=== PATIENT | male | born 1955 | race Caucasian/White ===

== ENCOUNTER 2017-07-18 19:08 | Emergency (ER) | payer MEDICAID ==
[~2017-07-18 19:08] MED LIST changes: -POTA20TA85 PO
--- NOTE | 2017-07-18 19:27 | ER Report ---
History and Physical Time Seen By MD: 19:17 Hx. of Stated Complaint: EMS WAS CALLED FOR PT THAT WAS PASSED OUT. PT DOES NOT REMEMBER EVENT. PT STATES HE FEELS FINE RIGHT NOW. HPI/ROS CHIEF COMPLAINT: Passed out at local restaurant. HISTORY OF PRESENT ILLNESS: This is a 62 year old male. He had a syncopal episode at the local [employer] restaurant. He does not remember passing out or even going to the restaurant. He vaguely remembers ordering some food. The last he really remembers was sitting at home watching TV. He denies any headache. He has some mild blurred vision. He denies any weakness or numbness in the face or arms or legs. He has not had trouble speaking or swallowing. He denies chest pain or palpitations. He has no cough or shortness of breath. No signs of recent illness such as runny nose, sore throat. No fevers or chills. No nausea or vomiting. Normal bowels and urination. No history of stroke. No history of arrhythmias, but does have a history of SD a few years ago. He has been eating and drinking normally today. Allergies: Coded Allergies: No Known Drug Allergies (Unverified , 07/18/17) Home Meds Active Scripts Potassium Chloride (KLOR-CON M20) 20 Meq Tab.er.prt, 20 MEQ PO QDAY, #30 TAB 0 Refills Prov:JOSE PORTILLO MD 07/18/17 Discontinued Reported Medications Aspirin (ASPIRIN) 81 Mg Tab.chew, 81 MG PO QDAY, TAB.CHEW TAKE 1 TABLET BY MOUTH EVERY DAY 03/27/13 Reviewed Nurses Notes: Yes Hx Smoking: Yes Hx Substance Use Disorder: No Hx Alcohol Use: No Constitutional Vital Sign - Last 24 Hours 07/18/17 07/18/17 07/18/17 07/18/17 19:10 19:30 19:35 19:38 Temp 97.8 Pulse 63 73 Resp 16 9 B/P (MAP) 140/72 (94) 118/79 (92) Pulse Ox 96 94 O2 Delivery Room Air 07/18/17 07/18/17 07/18/17 07/18/17 19:40 19:45 20:08 20:09 Pulse 76 72 72 Resp 15 16 18 B/P (MAP) 131/65 (87) 140/72 (94) 118/79 (92) Pulse Ox 98 96 O2 Delivery Room Air Room Air 07/18/17 07/18/17 07/18/17 07/18/17 20:10 20:45 21:00 21:15 Pulse 75 72 77 70 Resp 18 15 8 9 B/P (MAP) 131/65 (87) Pulse Ox 97 91 90 95 O2 Delivery Room Air 07/18/17 07/18/17 07/18/17 07/18/17 21:30 21:45 21:55 22:05 Pulse 73 75 72 73 Resp 17 17 14 8 Pulse Ox 94 92 92 96 07/18/17 22:15 Pulse 73 Resp 16 Pulse Ox 96 Intake and Output 07/18/17 07/18/17 07/19/17 15:00 23:00 07:00 Intake Total 2000 ml Balance 2000 ml Physical Exam General Appearance: The patient is alert. No acute distress. Eyes: Pupils are equal, round. No pallor, injection or icterus. ENT: Mucous membranes are dry, otherwise normal oral mucosa. Posterior oropharynx is normal. Normal nasal mucosa. Normal tympanic membranes and canals. Neck: Supple and non tender. No lymphadenopathy. Respiratory: Breathing easily and unlabored. Lungs are clear to auscultation. Cardiovascular: Regular rate and rhythm. No murmurs, gallops or rubs. Normal capillary refill. No edema. Gastrointestinal: Abdomen is soft and non tender. Nondistended. Normal active bowel sounds. Neurological: Alert and oriented x3. Cranial nerves II through XII show no acute deficits on my exam. No focal neurologic deficits in the extremities. Skin: Warm and dry. No rashes. Musculoskeletal: Extremities are nontender. Full range of motion. No tenderness in palpation of the cervical, thoracic and lumbar spine. DIFFERENTIAL DIAGNOSIS: After history and physical exam, differential diagnosis was considered for syncope including but not limited to vasovagal syncope, arrhythmia, dehydration, and blood loss. Medical Decision Making Data Points Result Diagram: 07/18/170 07/18/171899 Laboratory Hematology Test 07/18/17 19:00 07/18/17 19:59 Red Blood Count 5.07 M/uL (4.00-5.60) Mean Corpuscular Volume 92.2 fL (80.0-96.0) Mean Corpuscular Hemoglobin 33.0 pg (26.0-33.0) Mean Corpuscular Hemoglobin Concent 35.8 g/dL (32.0-36.0) Red Cell Distribution Width 12.9 % (11.5-14.5) Mean Platelet Volume 9.6 fL (7.2-11.1) Neutrophils (%) (Auto) 64.1 % (39.4-72.5) Lymphocytes (%) (Auto) 27.2 % (17.6-49.6) Monocytes (%) (Auto) 5.3 % (4.1-12.4) Eosinophils (%) (Auto) 1.6 % (0.4-6.7) Basophils (%) (Auto) 1.8 % (0.3-1.4) Nucleated RBC Relative Count (auto) 0.0 /100WBC Neutrophils # (Auto) 10.1 K/uL (2.0-7.4) Lymphocytes # (Auto) 4.3 K/uL (1.3-3.6) Monocytes # (Auto) 0.8 K/uL (0.3-1.0) Eosinophils # (Auto) 0.3 K/uL (0.0-0.5) Basophils # (Auto) 0.3 K/uL (0.0-0.1) Nucleated RBC Absolute Count (auto) 0.00 K/uL Peripheral Blood Smear Yes Y/N Erythrocyte Sedimentation Rate 9 mm/HOUR (0-20) Sodium Level 139 mmol/L (137-145) Potassium Level 2.9 mmol/L (3.5-5.0) Chloride Level 94 mmol/L (98-107) Carbon Dioxide Level 31 mmol/L (22-30) Blood Urea Nitrogen 20 mg/dl (9-21) Creatinine 1.30 mg/dl (0.66-1.25) Glomerular Filtration Rate Calc 55.8 Random Glucose 118 mg/dl (75-110) Lactate 1.6 mmol/L (0.7-2.1) Calcium Level 9.4 mg/dl (8.4-10.2) Total Bilirubin 0.4 mg/dl (0.2-1.3) Aspartate Amino Transf (AST/SGOT) 27 U/L (0-35) Alanine Aminotransferase (ALT/SGPT) 32 U/L (0-56) Alkaline Phosphatase 80 U/L (0-126) Troponin I < 0.012 ng/ml B-Type Natriuretic Peptide 36 pg/ml (0-100) Total Protein 7.7 gm/dl (6.3-8.2) Albumin 4.2 g/dl (3.5-5.0) Urine Color Yellow Urine Clarity Clear Urine pH 5.0 pH (4.8-9.5) Urine Specific [place] 1.018 Urine Protein Negative mg/dL (NEGATIVE) Urine Glucose (UA) Negative mg/dL (NEGATIVE) Urine Ketones Negative mg/dL (NEGATIVE) Urine Blood Small (NEGATIVE) Urine Nitrite Negative (NEGATIVE) Urine Bilirubin Negative (NEGATIVE) Urine Urobilinogen Negative mg/dL (0.2-1.9) Urine Leukocyte Esterase Negative (NEGATIVE) Urine RBC <1 /HPF (0-2/HPF) Urine WBC <1 /HPF (0-5/HPF) Urine Squamous Epithelial Cells None /LPF (</=FEW) Urine Bacteria Negative /HPF (NONE-FEW) Urine Hyaline Casts Moderate /LPF (NONE-FEW) Urine Mucus Few /HPF (NONE-FEW) Chemistry Test 07/18/17 19:00 07/18/17 19:59 White Blood Count 15.8 k/uL (4.5-11.0) Red Blood Count 5.07 M/uL (4.00-5.60) Hemoglobin 16.7 g/dL (14.0-18.0) Hematocrit 46.8 % (42.0-52.0) Mean Corpuscular Volume 92.2 fL (80.0-96.0) Mean Corpuscular Hemoglobin 33.0 pg (26.0-33.0) Mean Corpuscular Hemoglobin Concent 35.8 g/dL (32.0-36.0) Red Cell Distribution Width 12.9 % (11.5-14.5) Platelet Count 316 K/uL (150-450) Mean Platelet Volume 9.6 fL (7.2-11.1) Neutrophils (%) (Auto) 64.1 % (39.4-72.5) Lymphocytes (%) (Auto) 27.2 % (17.6-49.6) Monocytes (%) (Auto) 5.3 % (4.1-12.4) Eosinophils (%) (Auto) 1.6 % (0.4-6.7) Basophils (%) (Auto) 1.8 % (0.3-1.4) Nucleated RBC Relative Count (auto) 0.0 /100WBC Neutrophils # (Auto) 10.1 K/uL (2.0-7.4) Lymphocytes # (Auto) 4.3 K/uL (1.3-3.6) Monocytes # (Auto) 0.8 K/uL (0.3-1.0) Eosinophils # (Auto) 0.3 K/uL (0.0-0.5) Basophils # (Auto) 0.3 K/uL (0.0-0.1) Nucleated RBC Absolute Count (auto) 0.00 K/uL Peripheral Blood Smear Yes Y/N Erythrocyte Sedimentation Rate 9 mm/HOUR (0-20) Glomerular Filtration Rate Calc 55.8 Lactate 1.6 mmol/L (0.7-2.1) Calcium Level 9.4 mg/dl (8.4-10.2) Total Bilirubin 0.4 mg/dl (0.2-1.3) Aspartate Amino Transf (AST/SGOT) 27 U/L (0-35) Alanine Aminotransferase (ALT/SGPT) 32 U/L (0-56) Alkaline Phosphatase 80 U/L (0-126) Troponin I < 0.012 ng/ml B-Type Natriuretic Peptide 36 pg/ml (0-100) Total Protein 7.7 gm/dl (6.3-8.2) Albumin 4.2 g/dl (3.5-5.0) Urine Color Yellow Urine Clarity Clear Urine pH 5.0 pH (4.8-9.5) Urine Specific [place] 1.018 Urine Protein Negative mg/dL (NEGATIVE) Urine Glucose (UA) Negative mg/dL (NEGATIVE) Urine Ketones Negative mg/dL (NEGATIVE) Urine Blood Small (NEGATIVE) Urine Nitrite Negative (NEGATIVE) Urine Bilirubin Negative (NEGATIVE) Urine Urobilinogen Negative mg/dL (0.2-1.9) Urine Leukocyte Esterase Negative (NEGATIVE) Urine RBC <1 /HPF (0-2/HPF) Urine WBC <1 /HPF (0-5/HPF) Urine Squamous Epithelial Cells None /LPF (</=FEW) Urine Bacteria Negative /HPF (NONE-FEW) Urine Hyaline Casts Moderate /LPF (NONE-FEW) Urine Mucus Few /HPF (NONE-FEW) Urinalysis Test 07/18/17 19:59 Urine Color Yellow Urine Clarity Clear Urine pH 5.0 pH (4.8-9.5) Urine Specific [place] 1.018 Urine Protein Negative mg/dL (NEGATIVE) Urine Glucose (UA) Negative mg/dL (NEGATIVE) Urine Ketones Negative mg/dL (NEGATIVE) Urine Blood Small (NEGATIVE) Urine Nitrite Negative (NEGATIVE) Urine Bilirubin Negative (NEGATIVE) Urine Urobilinogen Negative mg/dL (0.2-1.9) Urine Leukocyte Esterase Negative (NEGATIVE) Urine RBC <1 /HPF (0-2/HPF) Urine WBC <1 /HPF (0-5/HPF) Urine Squamous Epithelial Cells None /LPF (</=FEW) Urine Bacteria Negative /HPF (NONE-FEW) Urine Hyaline Casts Moderate /LPF (NONE-FEW) Urine Mucus Few /HPF (NONE-FEW) EKG/Imaging EKG Interpretation 12 lead EKG: Rhythm: normal sinus rhythm, rate 73 [place]: normal QRS: normal ST segments: Nonspecific T changes, no ST elevation or depression Imaging EXAMINATION: CT head without IV contrast HISTORY: Syncope. TECHNIQUE: Axial CT images of the head were obtained from the vertex to the skull base without IV contrast, with coronal and sagittal 2D reconstructed images. One of the following dose optimization techniques was utilized in the performance of this exam: Automated exposure control; adjustment of the mA and/ or kV according to the patient's size; or use of an iterative reconstruction technique. Specific details can be referenced in the facility's radiology CT exam operational policy. COMPARISON: None. FINDINGS: Mild generalized parenchymal atrophy, with mild patchy low attenuation in the deep white matter, suggesting chronic small vessel ischemic change. There are small chronic appearing lacunar infarcts in the basal ganglia bilaterally. Intracranial vascular calcifications. No CT evidence of intracranial hemorrhage, mass lesion, or acute infarct. No midline shift or extra-axial fluid collections. Degroot-white differentiation is maintained. The calvarium is intact. The partially visualized paranasal sinuses and mastoid air cells are unopacified. IMPRESSION: 1. No CT evidence of acute intracranial pathology. 2. Mild parenchymal atrophy with chronic small vessel ischemic change. Small chronic-appearing lacunar infarcts along the basal ganglia. Report Dictated By: Arcadio Larios MD at 07/18/2017 8:27 PM EXAMINATION: CT cervical spine without IV contrast HISTORY: Syncope. TECHNIQUE: Thin axial CT images of the cervical spine were obtained without IV contrast, with sagittal and coronal 2D reconstructed images. One of the following dose optimization techniques was utilized in the performance of this exam: Automated exposure control; adjustment of the mA and/ or kV according to the patient's size; or use of an iterative reconstruction technique. Specific details can be referenced in the facility's radiology CT exam operational policy. COMPARISON: None. FINDINGS: The cervical spine is negative for acute fracture or subluxation. Normal alignment. Vertebral body height is maintained. Chronic degenerative changes in the cervical spine. Disc spaces are relatively well preserved, with mild degenerative endplate changes at the C3-C4 through C5- C6 interspaces. There is mild right foraminal narrowing at C3-C4 and mild bilateral foraminal narrowing at C4-C5 related to uncovertebral spurring. Posterior elements are intact, with normal alignment along the cervical facet joints. The dens is intact. Normal alignment along the craniocervical junction. IMPRESSION: 1. No acute osseous findings along the cervical spine. Normal alignment. 2. Mild chronic degenerative changes along the cervical spine. Report Dictated By: Arcadio Larios MD at 07/18/2017 8:32 PM Examination: CHEST SINGLE AP Comparison: None. History: Syncope. Findings: No consolidation, nodule, or peribronchial inflammation. No pneumothorax, edema, or effusion. Cardiac and hilar contour size is within normal limits. Osseous structures are intact. IMPRESSION: No findings of acute cardiopulmonary disease. Report Dictated By: Angelo Morgan MD at 07/18/2017 8:23 PM ED Course/Re-evaluation Clinical Indication for ER IV: Hydration, IV Access ED Course Orthostatic vital signs were done and showed a drop in blood pressure with sitting, but then back to the same as laying when he stands up. He received a liter of normal saline and feels better. He tells me he never drinks enough water. I discussed his low potassium level and the second liter of normal saline and the IV and oral potassium replacement. Reviewed the findings on CT and chest x-ray as noted above. Feeling better and will follow-up with primary care this week. Discussed that he likely has a concussion from the fall and discussed treatment of concussion. Decision to Disposition Date: Jul 18, 2017 Decision to Disposition Time: 22:11 Depart Departure Latest Vital Signs Vital Signs Date Time Temp Pulse Resp B/P (MAP) Pulse Ox O2 Delivery O2 Flow Rate FiO2 07/18/17 22:15 73 16 96 07/18/17 20:10 131/65 (87) Room Air 07/18/17 19:10 97.8 Impression: Primary Impression: Syncope Additional Impressions: Hypokalemia Concussion Condition: Improved Disposition: HOME OR SELF-CARE New Scripts Potassium Chloride (KLOR-CON M20) 20 Meq Tab.er.prt 20 MEQ PO QDAY, #30 TAB 0 Refills Prov: JOSE PORTILLO MD 07/18/17 Patient Instructions: Concussion (ED), Hypokalemia (ED), Syncope (ED) Additional Instructions: Increase fluid intake. start a potassium supplement, Klor-Con 20mEq tablets once a day Follow-up with primary care for repeat labs and re-evaluation. Concussion symptoms include: headache, nausea/vomiting, dizziness, difficulty concentrating, blurred vision. These symptoms can be mild or moderate. If symptoms become severe, follow-up evaluation is needed. Avoid any heavy physical activity and avoid any activities that may cause repeat head injury. Concussion symptoms can last for days or weeks. There is no way to predict how long these will last. It is okay to sleep after a head injury. Return to the ER for any altered mental status changes or confusion, or if one pupil is larger than the other, or if there are other abnormal or severe changes. Use Tylenol or Ibuprofen as needed for pain. Do not take any medicines containing aspirin for several days. Problem Qualifiers Primary Impression: Syncope Syncope type: unspecified Qualified Codes: R55 - Syncope and collapse Additional Impressions: Concussion Encounter type: initial encounter Loss of consciousness presence/duration: with LOC of 30 min or less Qualified Codes: S06.0X1A - Concussion with loss of consciousness of 30 minutes or less, initial encounter JOSE PORTILLO MD Jul 18, 2017 19:27
[2017-07-18] MEDS ORDERED: NS(*) 0.9% 1000 ML BAG 1,000 ML IV ONE ×2 (19:30→20:50)
[2017-07-18 19:41] LABS: PLATELET COUNT, AUTOMATED 316 K/uL (150-450)
[2017-07-18] MEDS ORDERED: EMS NS 0.9%(*) 1000 ML BAG 1,000 ML IV ONE (20:00)
--- NOTE | 2017-07-18 20:04 | EKG ---
FACILITY: [facility] - [place] PATIENT NAME: IVY MURILLO : [id number] MR: [id number] V: [id number] EXAM DATE: ORDERING PHYSICIAN: JOSE PORTILLO TECHNOLOGIST: TOD Test Reason : NEURO Blood Pressure : / mmHG Vent. Rate : 073 BPM Atrial Rate : 073 BPM P-R Int : 156 ms QRS Dur : 096 ms QT Int : 414 ms P-R-T Axes : 024 043 064 degrees QTc Int : 456 ms Sinus rhythm Nonspecific T wave findings Artifact present in multiple leads - repeat if needed Abnormal ECG Confirmed by XOCHITL PORTER ([id number] on 07/19/2017 6:40:16 AM Referred By: Confirmed By:XOCHITL PORTER
[2017-07-18 20:10] VITALS: BP 131/65
[2017-07-18] MEDS ORDERED: POTASSIUM CHL 20 MEQ TABCR PO ONE (20:15)
[2017-07-18] MEDS ORDERED: KCL (*) 20 MEQ/100 ML PREMIX 100 ML IV ONE (20:15)
--- NOTE | 2017-07-18 20:28 | RADIOLOGY IMAGING REPORT ---
FACILITY: [facility] - [place] PATIENT NAME: Yaya Ku : 1955 MR: [id number] V: [id number] EXAM DATE: ORDERING PHYSICIAN: JOSE PORTILLO TECHNOLOGIST: Location: [facility] Patient: Yaya Ku : 1955 Visit/Account:[id number] Date of Sevice: 07/18/2017 Examination: CHEST SINGLE AP Comparison: None. History: Syncope. Findings: No consolidation, nodule, or peribronchial inflammation. No pneumothorax, edema, or effusio n. Cardiac and hilar contour size is within normal limits. Osseous structures are intact. IMPRESSION: No findings of acute cardiopulmonary disease. Report Dictated By: Angelo Morgan MD at 07/18/2017 8:23 PM Report E-Signed By: Angelo Morgan MD at 07/18/2017 8:24 PM WSN:[id number]
--- NOTE | 2017-07-18 20:36 | RADIOLOGY IMAGING REPORT ---
FACILITY: [facility] - [place] PATIENT NAME: Yaya Ku : 1955 MR: [id number] V: [id number] EXAM DATE: ORDERING PHYSICIAN: JOSE PORTILLO TECHNOLOGIST: Location: [facility] [place] Patient: Yaya Ku : 1955 Visit/Account:[id number] Date of Sevice: 07/18/2017 EXAMINATION: CT head without IV contrast HISTORY: Syncope. TECHNIQUE: Axial CT images of the head were obtained from the vertex to the skull base without IV c ontrast, with coronal and sagittal 2D reconstructed images. One of the following dose optimization techniques was utilized in the performance of this exam: Autom ated exposure control; adjustment of the mA and/or kV according to the patient's size; or use of an i terative reconstruction technique. Specific details can be referenced in the facility's radiology C T exam operational policy. COMPARISON: None. FINDINGS: Mild generalized parenchymal atrophy, with mild patchy low attenuation in the deep white matter, sugg esting chronic small vessel ischemic change. There are small chronic appearing lacunar infarcts in th e basal ganglia bilaterally. Intracranial vascular calcifications. No CT evidence of intracranial hemorrhage, mass lesion, or acute infarct. No midline shift or extra-a xial fluid collections. Degroot-white differentiation is maintained. The calvarium is intact. The partially visualized paranasal sinuses and mastoid air cells are unopaci fied. IMPRESSION: 1. No CT evidence of acute intracranial pathology. 2. Mild parenchymal atrophy with chronic small vessel ischemic change. Small chronic-appearing lacuna r infarcts along the basal ganglia. Report Dictated By: Arcadio Larios MD at 07/18/2017 8:27 PM Report E-Signed By: Arcadio Larios MD at 07/18/2017 8:32 PM WSN:[id number]
--- NOTE | 2017-07-18 20:40 | RADIOLOGY IMAGING REPORT ---
FACILITY: [facility] - [place] PATIENT NAME: Yaya Ku : 1955 MR: [id number] V: [id number] EXAM DATE: ORDERING PHYSICIAN: JOSE PORTILLO TECHNOLOGIST: Location: [facility] - [place] Patient: Yaya Ku : 1955 Visit/Account:[id number] Date of Sevice: 07/18/2017 EXAMINATION: CT cervical spine without IV contrast HISTORY: Syncope. TECHNIQUE: Thin axial CT images of the cervical spine were obtained without IV contrast, with sagit chandrika and coronal 2D reconstructed images. One of the following dose optimization techniques was utilized in the performance of this exam: Autom ated exposure control; adjustment of the mA and/or kV according to the patient's size; or use of an i terative reconstruction technique. Specific details can be referenced in the facility's radiology C T exam operational policy. COMPARISON: None. FINDINGS: The cervical spine is negative for acute fracture or subluxation. Normal alignment. Vertebral body he ight is maintained. Chronic degenerative changes in the cervical spine. Disc spaces are relatively well preserved, with m ild degenerative endplate changes at the C3-C4 through C5-C6 interspaces. There is mild right foramin al narrowing at C3-C4 and mild bilateral foraminal narrowing at C4-C5 related to uncovertebral spurri ng. Posterior elements are intact, with normal alignment along the cervical facet joints. The dens is intact. Normal alignment along the craniocervical junction. IMPRESSION: 1. No acute osseous findings along the cervical spine. Normal alignment. 2. Mild chronic degenerative changes along the cervical spine. Report Dictated By: Arcadio Larios MD at 07/18/2017 8:32 PM Report E-Signed By: Arcadio Larios MD at 07/18/2017 8:37 PM WSN:[id number]
[2017-07-18] MEDS ORDERED: POTA20TA85 PO (22:13)
== END 2017-07-18 22:42 | disposition home or self-care (01) ==
LOC: ER 19:19
DX: S06.0X1A Concussion with loss of consciousness of 30 minutes or less, initial encounter (principal); E87.6 Hypokalemia; R94.31 Abnormal electrocardiogram [ECG] [EKG]
CPT/HCPCS: 36415; 70450; 71045; 72125; 81001; 83605; 83880; 84484; 85025; 85651; 93005; 96361; 96365; 99284; J3480; J7030; 36416; 82040; 82247; 82310; 82374; 82435; 82565; 82947; 82948; 84075; 84132; 84155; 84295; 84450; 84460; 84520

== ENCOUNTER → 2017-07-18 | Outpatient (CLI) | payer MEDICAID ==
[~2017-07-18] MED LIST: ASPI81TA94 PO; POTA20TA85 PO
== END ==
LOC: AMB 18:36
PROVIDERS: ATTEND Nurse Practitioner

== ENCOUNTER 2018-08-11 09:35 | Emergency (ER) | payer MEDICAID ==
[~2018-08-11 09:35] MED LIST changes: +POTA20TA85 PO
[2018-08-11] MEDS ORDERED: LISI-374 PO (09:50)
[2018-08-11] MEDS ORDERED: ASPI-1471 PO (09:50)
[2018-08-11] MEDS ORDERED: SPIR25TA80 PO (09:50)
[2018-08-11] MEDS ORDERED: METO50TA19 PO (09:50)
--- NOTE | 2018-08-11 09:57 | ER Report ---
History and Physical Time Seen By MD: 09:50 Hx. of Stated Complaint: patient reports bilateral calf pain that started around 2 weeks ago HPI/ROS CHIEF COMPLAINT: Calf pain HISTORY OF PRESENT ILLNESS: This a 63 male comes emergency Department today with complaint of calf pain bilaterally the last 2 weeks episodic comes and goes worse with ambulation better with rest however today he has 0 pain he says it feels significantly better he was on a statin for his cholesterol but is subsequently discontinued about a week or so ago. Patient denies any falls or trauma patient does have a cardiac history consisting of an CO back in 2012. Patient is still smoker. Patient has no additional complaints this time. Patient denies any Swelling or current tenderness. REVIEW OF SYSTEMS: Respiratory: No cough, no dyspnea. Cardiovascular: No chest pain, no palpitations. Gastrointestinal: No vomiting, no abdominal pain. Musculoskeletal: No back pain. Remainder of the 14 system rev: Yes Allergies: Coded Allergies: No Known Drug Allergies (Unverified , 07/18/17) Home Meds Reported Medications Spironolactone (SPIRONOLACTONE) 25 Mg Tablet, 50 MG PO QDAY, TAB 08/11/18 Metoprolol Succinate (METOPROLOL SUCCINATE) 50 Mg Tab.er.24h, 4 TAB PO QDAY, TAB 08/11/18 Aspirin (ASPIR 81) 81 Mg Tablet.dr, 81 MG PO QDAY, TAB 08/11/18 Lisinopril (LISINOPRIL) 40 Mg Tablet, 40 MG PO QDAY, TAB 08/11/18 Discontinued Scripts Potassium Chloride (KLOR-CON M20) 20 Meq Tab.er.prt, 20 MEQ PO QDAY, #30 TAB 0 Refills Prov:JOSE PORTILLO MD 07/18/17 Reviewed Nurses Notes: Yes Old Medical Records Reviewed: Yes Hx Smoking: Yes Hx Substance Use Disorder: No Hx Alcohol Use: No Constitutional Vital Sign - Last 24 Hours 08/11/18 08/11/18 08/11/18 09:40 09:40 10:59 Temp 98.0 Pulse 82 Resp 20 B/P (MAP) 107/73 (84) 107/73 119/62 (81) Pulse Ox 92 O2 Delivery Room Air Physical Exam General Appearance: The patient is alert, has no immediate need for airway protection and no current signs of toxicity. [ ] Eyes: Pupils equal and round no injection. Respiratory: Chest is non tender, lungs are clear to auscultation. Cardiac: regular rate and rhythm [ ] Gastrointestinal: Abdomen is soft and non tender, no masses, bowel sounds normal. Musculoskeletal: Lower extremity examination bilaterally shows negative Homans negative Arias negative drawer signs patient has normal pulses DP and PT bilaterally 2+ patient has neurovascularly intact full range of motion no pain with ambulation or calf raise Neck is supple and non tender. Extremities have full range of motion and are non tender. Skin: No rashes or lesions. [ ] DIFFERENTIAL DIAGNOSIS: After history and physical exam differential diagnosis was considered for myositis, DVT Medical Decision Making Data Points Result Diagram: 08/11/18 0954 08/11/18 0954 Laboratory Hematology Test 08/11/18 09:54 Red Blood Count 4.87 M/uL (4.00-5.60) Mean Corpuscular Volume 94.7 fL (80.0-96.0) Mean Corpuscular Hemoglobin 33.2 pg (26.0-33.0) Mean Corpuscular Hemoglobin Concent 35.1 g/dL (32.0-36.0) Red Cell Distribution Width 13.6 % (11.5-14.5) Mean Platelet Volume 8.2 fL (7.2-11.1) Neutrophils (%) (Auto) 71.9 % (39.4-72.5) Lymphocytes (%) (Auto) 16.9 % (17.6-49.6) Monocytes (%) (Auto) 7.2 % (4.1-12.4) Eosinophils (%) (Auto) 1.6 % (0.4-6.7) Basophils (%) (Auto) 2.4 % (0.3-1.4) Nucleated RBC Relative Count (auto) 0.0 /100WBC Neutrophils # (Auto) 8.6 K/uL (2.0-7.4) Lymphocytes # (Auto) 2.0 K/uL (1.3-3.6) Monocytes # (Auto) 0.9 K/uL (0.3-1.0) Eosinophils # (Auto) 0.2 K/uL (0.0-0.5) Basophils # (Auto) 0.3 K/uL (0.0-0.1) Nucleated RBC Absolute Count (auto) 0.00 K/uL D-Dimer Quantitative (PE/DVT) 0.53 ug/ml (0-0.50) Sodium Level 135 mmol/L (137-145) Potassium Level 4.9 mmol/L (3.5-5.0) Chloride Level 97 mmol/L (98-107) Carbon Dioxide Level 28 mmol/L (22-30) Blood Urea Nitrogen 29 mg/dl (9-21) Creatinine 1.80 mg/dl (0.66-1.25) Glomerular Filtration Rate Calc 38.2 Random Glucose 107 mg/dl (75-110) Calcium Level 9.8 mg/dl (8.4-10.2) Total Bilirubin 0.4 mg/dl (0.2-1.3) Aspartate Amino Transf (AST/SGOT) 23 U/L (0-35) Alanine Aminotransferase (ALT/SGPT) 18 U/L (0-56) Alkaline Phosphatase 75 U/L (0-126) Total Creatine Kinase 42 U/L (55-170) Troponin I < 0.012 ng/ml C-Reactive Protein < 0.5 mg/dl (<1.0) Total Protein 8.2 g/dl (6.3-8.2) Albumin 4.6 g/dl (3.5-5.0) Chemistry Test 08/11/18 09:54 White Blood Count 12.0 k/uL (4.5-11.0) Red Blood Count 4.87 M/uL (4.00-5.60) Hemoglobin 16.2 g/dL (14.0-18.0) Hematocrit 46.1 % (42.0-52.0) Mean Corpuscular Volume 94.7 fL (80.0-96.0) Mean Corpuscular Hemoglobin 33.2 pg (26.0-33.0) Mean Corpuscular Hemoglobin Concent 35.1 g/dL (32.0-36.0) Red Cell Distribution Width 13.6 % (11.5-14.5) Platelet Count 323 K/uL (150-450) Mean Platelet Volume 8.2 fL (7.2-11.1) Neutrophils (%) (Auto) 71.9 % (39.4-72.5) Lymphocytes (%) (Auto) 16.9 % (17.6-49.6) Monocytes (%) (Auto) 7.2 % (4.1-12.4) Eosinophils (%) (Auto) 1.6 % (0.4-6.7) Basophils (%) (Auto) 2.4 % (0.3-1.4) Nucleated RBC Relative Count (auto) 0.0 /100WBC Neutrophils # (Auto) 8.6 K/uL (2.0-7.4) Lymphocytes # (Auto) 2.0 K/uL (1.3-3.6) Monocytes # (Auto) 0.9 K/uL (0.3-1.0) Eosinophils # (Auto) 0.2 K/uL (0.0-0.5) Basophils # (Auto) 0.3 K/uL (0.0-0.1) Nucleated RBC Absolute Count (auto) 0.00 K/uL D-Dimer Quantitative (PE/DVT) 0.53 ug/ml (0-0.50) Glomerular Filtration Rate Calc 38.2 Calcium Level 9.8 mg/dl (8.4-10.2) Total Bilirubin 0.4 mg/dl (0.2-1.3) Aspartate Amino Transf (AST/SGOT) 23 U/L (0-35) Alanine Aminotransferase (ALT/SGPT) 18 U/L (0-56) Alkaline Phosphatase 75 U/L (0-126) Total Creatine Kinase 42 U/L (55-170) Troponin I < 0.012 ng/ml C-Reactive Protein < 0.5 mg/dl (<1.0) Total Protein 8.2 g/dl (6.3-8.2) Albumin 4.6 g/dl (3.5-5.0) Coagulation Test 08/11/18 09:54 D-Dimer Quantitative (PE/DVT) 0.53 ug/ml ED Course/Re-evaluation ED Course ED course except for little male completely pain-free on arrival no indication of claudication DVT rule out bilateral lower extremity ultrasounds were negative chest CT angiogram secondary to an elevated d-dimer also negative EKG showed old T-wave inversions but nothing new or acute troponins cardiac markers were all negative he is a has been on a statin for his cholesterol medications this is most likely a myositis. She cannot give a serum myoglobin here however I he is currently off of that and the symptoms are resolving side believe that maybe her etiology if symptoms return a gets pain with ambulation I did explain the risks of claudication a compartment syndrome to return immediately to the emergency d epartment follow primary care as needed Decision to Disposition Date: August 11, 2018 Decision to Disposition Time: 11:40 Depart Departure Latest Vital Signs Vital Signs Date Time Temp Pulse Resp B/P (MAP) Pulse Ox O2 Delivery O2 Flow Rate FiO2 08/11/18 10:59 119/62 (81) 08/11/18 09:40 98.0 82 20 92 Room Air Impression: Primary Impression: Leg cramp Condition: Improved Disposition: HOME OR SELF-CARE Referrals: SUZY HERNANDEZ PA-C (PCP) 5 Days Patient Instructions: Leg Pain (ED) JOSE RAMIREZ MD August 11, 2018 09:57
--- NOTE | 2018-08-11 10:03 | EKG ---
FACILITY: [facility] - [place] PATIENT NAME: IVY MURILLO : [id number] MR: [id number] V: [id number] EXAM DATE: ORDERING PHYSICIAN: JOSE RAMIREZ TECHNOLOGIST: MARYBETH Test Reason : CP Blood Pressure : / mmHG Vent. Rate : 070 BPM Atrial Rate : 070 BPM P-R Int : 158 ms QRS Dur : 090 ms QT Int : 400 ms P-R-T Axes : 055 014 190 degrees QTc Int : 432 ms Normal sinus rhythm T wave abnormality, consider inferolateral ischemia Abnormal ECG When compared with ECG of 18-JUL-2017 19:23, Previous ECG has undetermined rhythm, needs review Inverted T waves have replaced nonspecific T wave abnormality in Lateral leads Confirmed by TERESA DAVILA ([id number]) on 08/11/2018 1:09:14 PM Referred By: JAMES Confirmed By:TERESA DAVILA
[2018-08-11 10:05] LABS: PLATELET COUNT, AUTOMATED 323 K/uL (150-450)
[2018-08-11] MEDS ORDERED: NS(*) 0.9% 50 ML BAG 50 ML ONE (10:41)
[2018-08-11] MEDS ORDERED: IOPAMIDOL 76% 150 ML INFUS BTL 150 ML ONE (10:41)
--- NOTE | 2018-08-11 10:51 | RADIOLOGY IMAGING REPORT ---
FACILITY: [facility] - [place] PATIENT NAME: Yaya Ku : 1955 MR: [id number] V: [id number] EXAM DATE: ORDERING PHYSICIAN: JOSE RAMIREZ TECHNOLOGIST: Location: [facility] [place] Patient: Yaya Ku : 1955 Visit/Account:[id number] Date of Sevice: 08/11/2018 Chest with lateral, 2 views. HISTORY: Smoker, chest pain. COMPARISON: 07/18/2017. A mild streaky density is present in the anterior aspect of the left lower lung. The aortic knob is c alcified. The heart and mediastinum are otherwise unremarkable. No bulky adenopathy. Pulmonary vess els are unremarkable. The lungs are voluminous. The pleural surfaces are unremarkable. No pneumothor ax. No acute bony abnormalities. IMPRESSION: Mild left basilar subsegmental atelectasis or pleural parenchymal scar. Atherosclerosis. COPD. Report Dictated By: Napoleon Snell MD at 08/11/2018 10:31 AM Report E-Signed By: Napoleon Snell MD at 08/11/2018 10:47 AM WSN:[id number]
[2018-08-11] MEDS ORDERED: NS(*) 0.9% 1000 ML BAG 1,000 ML IV ONE (11:00)
[2018-08-11 11:30] VITALS: BP 110/60
--- NOTE | 2018-08-11 11:35 | RADIOLOGY IMAGING REPORT ---
FACILITY: PATIENT NAME: Yaya Ku : 1955 MR: [id number] V: [id number] EXAM DATE: ORDERING PHYSICIAN: JOSE RAMIREZ TECHNOLOGIST: [place] [facility] [place]aya Ku : 1955 Visit/Account:[id number] Date of Sevice: 08/11/[address] pulmonary angiogram with contrast. HISTORY: Chest pain, rule out PE. COMPARISON: Chest radiographs 08/11/2018. 3 mm thick and [address] images were obtained of the chest using 85 mL intravenous Isovue-3 70. 3-D SLAB MIPS reconstruction images were obtained of the pulmonary arteries. One of the following dose optimization techniques was utilized in the performance of this exam: Automated exposure contro l; adjustment of the mA and/or kV according to the patient's size; or use of an iterative reconstruc tion technique. Specific details can be referenced in the facility's radiology CT exam operational p olicy. FINDINGS: The pulmonary arteries are unremarkable. No filling defects are identified to suggest acute pulmonary embolism. The thoracic aorta is ectatic and calcified. The great vessels are partially calcified. A bovine arch is present. The coronary arteries are partially calcified. The heart is mildly enlarged. The left ventricular wall is thickened. No bulky adenopathy. The lungs are voluminous. Mild streaky d ensities are present in the left lung base. No pleural fluid. No pneumothorax. A few vascular calcifications are present in the upper abdomen. A 1.5 cm low-density lesion probably representing a cyst is present in the upper pole of the left kidney. IMPRESSION: Negative for acute pulmonary embolism. Aortic and coronary atherosclerosis. Mild cardiomegaly. 1.5 cm left renal lesion, probable cyst. Report Dictated By: Napoleon Snell MD at 08/11/2018 11:21 AM Report E-Signed By: Napoleon Snell MD at 08/11/2018 11:31 AM WSN:[id number]
--- NOTE | 2018-08-11 11:38 | RADIOLOGY IMAGING REPORT ---
FACILITY: [facility] PATIENT NAME: Yaya Ku : 1955 MR: [id number] V: [id number] EXAM DATE: ORDERING PHYSICIAN: JOSE RAMIREZ TECHNOLOGIST: Location: [facility] - [place] Patient: Yaya Ku : 1955 Visit/Account:[id number] Date of Sevice: 08/11/2018 Bilateral lower extremity venous Doppler duplex ultrasound scan. HISTORY: Leg cramps, chest pain. COMPARISON: None. A color flow Doppler duplex ultrasound examination with spectral analysis was performed on both lower extremities. The common femoral veins, superficial femoral veins, and popliteal veins are normal. Th theron vessels compress and augment normally. The upper portions of the trifurcation veins are unremarka ble. Portions of the deep veins of the calves are obscured. No intraluminal filling defects are ident ified to suggest acute thrombus in the deep venous system. No abnormal fluid collections. A venous reflux study was not performed at this time. Note that Doppler ultrasound is somewhat insensitive below the knees. IMPRESSION: Negative for acute deep vein thrombosis. Report Dictated By: Napoleon Snell MD at 08/11/2018 11:32 AM Report E-Signed By: Napoleon Snell MD at 08/11/2018 11:33 AM WSN:[id number]
== END 2018-08-11 11:55 | disposition home or self-care (01) ==
LOC: ER 09:41 → CANBEDREQ 11:51 → ER 11:55
DX: R25.2 Cramp and spasm (principal)
CPT/HCPCS: 71046; 71275; 82550; 84484; 85025; 85379; 86140; 93005; 93970; 96360; 99284; J7030; J7050; Q9967; 82040; 82247; 82310; 82374; 82435; 82565; 82947; 84075; 84132; 84155; 84295; 84450; 84460; 84520